=== PATIENT | female | born 1965 | race Caucasian/White ===

== ENCOUNTER 2017-05-20 14:33 | Emergency (ER) | payer OTHER ==
[~2017-05-20] VITALS: Wt 61.5 kg
[~2017-05-20 14:33] MED LIST: DIAZ-90 PO; HYDR-3498 PO; IBUP800T25 PO; TRAZ50TA18 PO
[2017-05-20] MEDS ORDERED: ONDANSETRON (ODT) 4 MG TAB ODT STA (15:03)
[2017-05-20 15:13] LABS: URINE BLOOD (Dip) POC Negative (NEGATIVE)
[2017-05-20] MEDS ORDERED: HYDROCODONE/APAP (5/325) TAB PO ONE (15:30)
[2017-05-20] MEDS ORDERED: MECLIZINE 12.5 MG TAB PO ONE (15:30)
[2017-05-20 15:39] LABS: ADD UMIC YES; UR ASCORBIC ACID NEGATIVE (NEGATIVE); UR BACTERIA FEW /HPF (NONE SEEN); UR BILIRUBIN (Dip) NEGATIVE (NEGATIVE); UR BLOOD (Dip) NEGATIVE (NEGATIVE); UR CLARITY CLEAR (CLEAR); UR COLOR STRAW (YELLOW); UR GLUCOSE (Dip) NEGATIVE (NEGATIVE); UR KETONES (Dip) NEGATIVE (NEGATIVE); UR LEUKOCYTE ESTERASE (Dip) 2+ Leu/ul (NEGATIVE); UR NITRITE (Dip) NEGATIVE (NEGATIVE); UR RBC 1 /HPF (0-5); UR SPECIFIC GRAVITY (Dip) 1.003 (1.003-1.030); UR SQUAMOUS EPITHELIAL CELL FEW /HPF (FEW); UR TOTAL PROTEIN (Dip) NEGATIVE (NEGATIVE); UR UROBILINOGEN (Dip) NEGATIVE (NEGATIVE)
[2017-05-20 15:44] LABS: BASOPHILS % 0.4 % (0.0-2.0); EOSINOPHILS # 0.1 10^3/ul (0.0-0.5); EOSINOPHILS % 1.3 % (0.0-7.0); HEMOGLOBIN 9.6 g/dl (12.0-16.0); LYMPHOCYTES # 2.1 10^3/ul (0.8-2.9); LYMPHOCYTES % 46.8 % (15.0-51.0); MEAN CORPUSCULAR HEMOGLOBIN 23.8 pg (29.0-33.0); MEAN CORPUSCULAR VOLUME 76.7 fl (82.0-101.0); MEAN PLATELET VOLUME 9.4 fl (7.4-10.4); MONOCYTE # 0.4 10^3/ul (0.3-0.9); MONOCYTES % 9.2 % (0.0-11.0); NEUTROPHIL # 1.9 10^3/ul (1.6-7.5); NEUTROPHILS % 42.3 % (39.0-77.0); PLATELET COUNT 356 10^3/UL (140-415); RED BLOOD COUNT 4.04 10^6/ul (4.20-5.40); RED CELL DISTRIBUTION WIDTH 15.6 % (11.5-14.5); WHITE BLOOD COUNT 4.6 10^3/ul (4.8-10.8)
[2017-05-20 15:48] LABS: ADD SCAN DIFF NO
[2017-05-20 16:03] LABS: CALCIUM 10.2 mg/dl (8.4-10.2); CREATININE 0.46 mg/dl (0.44-1.00); POTASSIUM 4.3 mmol/L (3.5-5.1)
--- NOTE | 2017-05-20 16:04 | RADRPT ---
PROCEDURE: CT Brain without. CLINICAL INDICATION: Headache. TECHNIQUE: A CT of the brain was performed on multidetector high-resolution CT scanner utilizing a xial sections from the skull base through the vertex without contrast. The scan was reviewed in sof t tissue brain and high frequency resolution bone algorithm windows. Images were reviewed on a high -resolution PACS workstation. One or more the following does reduction techniques were utilized: Aut omated exposure control, adjustment of the mA/ or kV according to patient's size, or use of iterativ e reconstruction technique. The exam CTDI = 44.33 mGy and the DLP = 720.23 mGy-cm. COMPARISON: Brain CT 02/27/2016. Brain MRI 10/08/2014. FINDINGS: The ventricles and sulci are minimally prominent indicative of volume loss. There is no intracranial hemorrhage, mass effect or midline shift. No abnormal intra-axial or extra-axial fluid collections are seen. The crowe/white matter differentiation is preserved. There are minimal scattered foci of hypoattenuation in the white matter, which are nonspecific in et iology but likely reflect chronic small vessel ischemic changes. There are mild intracranial vascul ar calcifications consistent with atherosclerosis. The visualized paranasal sinuses are essentially clear. IMPRESSION: 1. No acute intracranial hemorrhage, transcortical infarction or mass effect. Considering previous history of sellar mass if clinical concern persists consider brain MRI with pituitary protocol. 2. Minimal chronic small vessel ischemic changes. 3. Minimal generalized cerebral volume loss. RPTAT: QQ .Shira Lopez MD, Date Time Electronically viewed and signed by .Shira Lopez MD, MD on 05/20/2017 16:04 .N/
[2017-05-20] MEDS ORDERED: NAPR-260 PO (16:16)
[2017-05-20] MEDS ORDERED: CEPH-443 PO (16:16)
[2017-05-20] MEDS ORDERED: MECL12.574 PO (16:17)
[2017-05-20 16:32] VITALS: BP 106/67; PULSE 74; RESP 17; TEMP 98.6
--- NOTE | 2017-05-20 19:05 | ERD ---
ER Documentation Chief Complaint Date/Time DATE: 05/20/17 TIME: 18:59 Chief Complaint DIZZINESS, HEADACHE, ONSET 2 WEEKS HPI This patient is a 51-year-old female presenting to the emergency department with complaints of dizziness, and headache ongoing intermittently for the past 2 weeks. Additionally the patient reports full body pain. The patient felt the room spinning this morning and she fell to the floor on the carpet but did not injure her head or lose consciousness. She does have past medical history of chronic headaches for 5 years as well as a pituitary tumor which was removed. She states this headache is different than she has ever had and it is the highest in severity then she has ever had. She denies aggravating or alleviating factors. She does additionally complain of some dysuria. No fevers , chills, syncope, chest pain, shortness of breath, or other symptoms reported currently. ROS All systems reviewed and are negative except as per history of present illness. Medications Home Meds Active Scripts Meclizine Hcl* (Antivert*) 12.5 Mg Tab, 12.5 MG PO Q6H Y for DIZZINESS, #20 TAB Prov:ABRAHAM RAM PA-C 05/20/17 Naproxen* (Naprosyn*) 500 Mg Tablet, 500 MG PO BID Y for PAIN AND/OR INFLAMMATION, #30 TAB Prov:ABRAHAM RAM PA-C 05/20/17 Cephalexin* (Keflex*) 500 Mg Capsule, 500 MG PO TID for 7 Days, #21 CAP Prov:ABRAHAM RAM PA-C 05/20/17 Diazepam* (Valium*) 5 Mg Tablet, 5 MG PO Q8 Y for MUSCLE SPASMS, #10 TAB Prov:SANIDE RAYMOND PA-C 07/31/16 Ibuprofen* (Motrin*) 800 Mg Tab, 800 MG PO Q6H Y for PAIN AND OR ELEVATED TEMP, #30 TAB Prov:SANDIE RAYMOND PA-C 07/31/16 Hydrocodone Bit-Acetaminophen* (Mendon*) 5-325 Mg Tab, 1 TAB PO Q6 Y for PAIN, # 10 TAB Prov:OUMAR FLETCHER MD 02/28/16 Reported Medications Trazodone Hcl* (Desyrel*) 50 Mg Tab, 50 MG PO QHS, TAB 02/27/16 Allergies Allergies: Coded Allergies: No Known Drug Allergies (Verified Allergy, Unknown, 10/25/14) PMhx/Soc History of Surgery: No Anesthesia Reaction: No Hx Neurological Disorder: No Hx Respiratory Disorders: No Hx Cardiac Disorders: No Hx Psychiatric Problems: No Hx Miscellaneous Medical Probl: No Hx Alcohol Use: No Hx Substance Use: No Hx Tobacco Use: No Smoking Status: Never smoker Physical Exam Vitals Vital Signs Date Time Temp Pulse Resp B/P Pulse Ox O2 Delivery O2 Flow Rate FiO2 05/20/17 16:32 98.6 74 17 106/67 98 Room Air 05/20/17 15:22 98.6 80 18 106/83 96 Room Air 86 110/75 91 117/83 05/20/17 14:35 99.2 88 17 124/71 99 Physical Exam Const: Nontoxic, well-appearing female who appears to be in acute pain. Head: Atraumatic Eyes: Normal Conjunctiva ENT: Normal External Ears, Nose and Mouth. Neck: Full range of motion..~ No meningismus. Resp: Clear to auscultation bilaterally Cardio: Regular rate and rhythm, no murmurs Abd: Soft, non tender, non distended. Normal bowel sounds Skin: No petechiae or rashes Back: No midline or flank tenderness Ext: No cyanosis, or edema Neur: Awake and alert. Cranial nerves intact. Negative Romberg's test. Negative pronator drift. Psych: Normal Mood and Affect Result Diagram: 05/20/17 1533 05/20/17 1533 Results 24 hrs Laboratory Tests Test 05/20/17 15:13 05/20/17 15:18 05/20/17 15:33 Urine Color STRAW Urine Clarity CLEAR Urine pH 9.0 Urine Specific [place] 1.003 Urine Ketones NEGATIVEmg/dL Urine Nitrite NEGATIVEmg/dL Urine Bilirubin NEGATIVEmg/dL Urine Urobilinogen NEGATIVEmg/dL Urine Leukocyte Esterase 2+Anjel/ul Urine Microscopic RBC 1/HPF Urine Microscopic WBC 12/HPF Urine Squamous Epithelial Cells FEW/HPF Urine Bacteria FEW/HPF Urine Hemoglobin NEGATIVEmg/dL Urine Glucose NEGATIVEmg/dL Urine Total Protein NEGATIVEmg/dl Bedside Urine pH (LAB) 7.5 Bedside Urine Protein (LAB) Negative Bedside Urine Glucose (UA) Negative Bedside Urine Ketones (LAB) Negative Bedside Urine Blood Negative Bedside Urine Nitrite (LAB) Negative Bedside Urine Leukocyte Esterase (L 1+ White Blood Count 4.610^3/ul Red Blood Count 4.0410^6/ul Hemoglobin 9.6g/dl Hematocrit 31.0% Mean Corpuscular Volume 76.7fl Mean Corpuscular Hemoglobin 23.8pg Mean Corpuscular Hemoglobin Concent 31.0g/dl Red Cell Distribution Width 15.6% Platelet Count 33057^3/UL Mean Platelet Volume 9.4fl Neutrophils % 42.3% Lymphocytes % 46.8% Monocytes % 9.2% Eosinophils % 1.3% Basophils % 0.4% Nucleated Red Blood Cells % 0.0/100WBC Neutrophils # 1.910^3/ul Lymphocytes # 2.110^3/ul Monocytes # 0.410^3/ul Eosinophils # 0.110^3/ul Basophils # 0.010^3/ul Nucleated Red Blood Cells # 0.010^3/ul Sodium Level 143mmol/L Potassium Level 4.3mmol/L Chloride Level 101mmol/L Carbon Dioxide Level 24mmol/L Anion Gap 22 Blood Urea Nitrogen 5mg/dl Creatinine 0.46mg/dl Glucose Level 87mg/dl Calcium Level 10.2mg/dl Current Medications Medications (Trade) Dose Ordered Sig/Luther Route PRN Reason Start Time Stop Time Status Last Admin Dose Admin Acetaminophen/ Hydrocodone Bitart ([place] (5/325)) 1 tab ONCE ONCE PO 05/20/17 15:30 05/20/17 15:31 DC 05/20/17 15:15 Ondansetron HCl (Zofran Odt) 4 mg ONCE STAT ODT 05/20/17 15:03 05/20/17 15:06 DC 05/20/17 15:15 Meclizine HCl (Antivert) 12.5 mg ONCE ONCE PO 05/20/17 15:30 05/20/17 15:31 DC 05/20/17 15:15 [place] [id number] Radiology Main Line: [phone] DIAGNOSTIC IMAGING REPORT Patient: TOBY DESAI : 1965 Age: 51 Sex: F MR #: [id number] DOS: 05/20/17 0000 Ordering MD: ABRAHAM RAM PA-C Location: [facility] Room/Bed: PROCEDURE: CT Brain without. CLINICAL INDICATION: Headache. TECHNIQUE: A CT of the brain was performed on multidetector high-resolution CT scanner utilizing axial sections from the skull base through the vertex without contrast. The scan was reviewed in soft tissue brain and high frequency resolution bone algorithm windows. Images were reviewed on a high- resolution PACS workstation. One or more the following does reduction techniques were utilized: Automated exposure control, adjustment of the mA/ or kV according to patient's size, or use of iterative reconstruction technique. The exam CTDI = 44.33 mGy and the DLP = 720.23 mGy-cm. COMPARISON: Brain CT 02/27/2016. Brain MRI 10/08/2014. FINDINGS: The ventricles and sulci are minimally prominent indicative of volume loss. There is no intracranial hemorrhage, mass effect or midline shift. No abnormal intra-axial or extra-axial fluid collections are seen. The crowe/white matter differentiation is preserved. There are minimal scattered foci of hypoattenuation in the white matter, which are nonspecific in etiology but likely reflect chronic small vessel ischemic changes. There are mild intracranial vascular calcifications consistent with atherosclerosis. The visualized paranasal sinuses are essentially clear. IMPRESSION: 1. No acute intracranial hemorrhage, transcortical infarction or mass effect. Considering previous history of sellar mass if clinical concern persists consider brain MRI with pituitary protocol. 2. Minimal chronic small vessel ischemic changes. 3. Minimal generalized cerebral volume loss. RPTAT: QQ .Shira Lopez MD, MD Date Time Electronically viewed and signed by .Shira Lopez MD, MD on 05/20/2017 16: 04 .N/ CC: ABRAHAM RAM PA-C Procedures/[facility] EMERGENCY DEPARTMENT COURSE / MEDICAL DECISION MAKING: This is a 51-year-old female who comes to the emergency room secondary to complaints of dizziness, headache, body pain, and dysuria. The patient was given p.o. meclizine, p.o. Zofran, p.o. Mendon in the department. On re-evaluation, the patient was feeling improved. Lab results reviewed. CBC: No leukocytosis or left shift. Anemia was noted and the patient was advised to supplement with iron. Chemistry: No significant acute abnormalities. UA: Concerning for urinary tract infection. Radiology: CT scan of the brain without contrast was obtained because the patient was complaining of the worst headache of her life. It was negative for acute findings and interpreted by the radiologist. The primary diagnosis is urinary tract infection. Secondary diagnosis is dizziness with unknown etiology. Other diagnoses include headache and anemia. I have low suspicion for intracranial hemorrhage, TIA, CVA, acute coronary syndrome, septicemia, or other emergent conditions at this time. Discharge: I have discussed the lab results and diagnostic findings with the patient and answered any questions or concerns. The patient was discharged with a prescription for meclizine, naproxen, and cephalexin. The patient was advised to followup with their PMD in 1-2 days and to return to the Emergency Department if there are any new or worsening symptoms. The patient understood and agreed with the diagnosis, treatment and plan. The patient is stable for discharge at this time. Departure Diagnosis: Primary Impression: Urinary tract infection Additional Impressions: Dizziness Headache Headache type: unspecified Headache chronicity pattern: acute headache Intractability: not intractable Qualified Code: R51 - Acute nonintractable headache, unspecified headache type Anemia Condition: Fair Patient Instructions: Understanding Urinary Tract Infections (UTIs), Self-Care for Headaches, Dizziness (Vertigo) and Balance Problems: Ensuring Your Safety, Dizziness, Unk Cause Additional Instructions: No mas mejor en 2-3 potter, regresar. Mas peor en 24 horas, regresear rapidamente. Ir a doctor primario in 5-7 potter. Usar instrucciones cuando lauren medicamento. ABRAHAM RAM PA-C May 20, 2017 19:05
== END 2017-05-20 16:33 | disposition home or self-care (01) ==
LOC: FTE 14:33
DX: N39.0 Urinary tract infection, site not specified (principal); R51 Headache; D64.9 Anemia, unspecified
CPT/HCPCS: 70450; 80048; 81001; 85025; 87086; Z7610; 36415; 81003

== ENCOUNTER 2017-07-25 14:33 | Emergency (ER) | payer OTHER ==
[~2017-07-25] VITALS: Ht 162.6 cm; Wt 61.5 kg
[~2017-07-25 14:33] MED LIST changes: +CEPH-443 PO; +MECL12.574 PO; +NAPR-260 PO
[2017-07-25 14:38] VITALS: Ht 162.6 cm; Wt 61.5 kg
[2017-07-25] MEDS ORDERED: TRAM-40 PO (15:38)
[2017-07-25] MEDS ORDERED: KETOROLAC 15 MG INJ IV STA (15:43)
[2017-07-25] MEDS ORDERED: SOD CHLORIDE 0.9% 1,000 ML IV STA (15:43)
[2017-07-25] MEDS ORDERED: ACET-820 PO (15:43)
[2017-07-25] MEDS ORDERED: ONDANSETRON 4 MG INJ IV STA (15:43)
--- NOTE | 2017-07-25 16:12 | RADRPT ---
PROCEDURE: XR Chest. CLINICAL INDICATION: Abdominal pain. TECHNIQUE: Single frontal view of the chest was obtained. COMPARISON: None FINDINGS: Monitoring electrodes project across the chest. The soft tissues are otherwise normal. There are s mall degenerative osteophytes in the thoracic spine. The heart, cardiomediastinal silhouette and hi lar structures are normal. The pulmonary vasculature is normal. There is a left-sided aorta. The tiffanie ngs are clear. The costophrenic angles are normal. IMPRESSION: 1. No evidence of active cardiopulmonary disease. 2. No evidence of pneumoperitoneum. 3. Spondylosis of the thoracic spine. RPTAT:AAJJ Physician Yoli Date Time Electronically viewed and signed by Physician Yoli on 07/25/2017 16:12 /
[2017-07-25 16:21] LABS: BASOPHILS % 0.4 % (0.0-2.0); EOSINOPHILS # 0.1 10^3/ul (0.0-0.5); HEMOGLOBIN 9.7 g/dl (12.0-16.0); LYMPHOCYTES # 1.6 10^3/ul (0.8-2.9); LYMPHOCYTES % 31.1 % (15.0-51.0); MEAN CORPUSCULAR HEMOGLOBIN 23.5 pg (29.0-33.0); MEAN CORPUSCULAR HGB CONC 31.3 g/dl (32.0-37.0); MEAN CORPUSCULAR VOLUME 75.1 fl (82.0-101.0); MEAN PLATELET VOLUME 10.6 fl (7.4-10.4); MONOCYTE # 0.5 10^3/ul (0.3-0.9); MONOCYTES % 9.2 % (0.0-11.0); NEUTROPHILS % 58.1 % (39.0-77.0); PLATELET COUNT 341 10^3/UL (140-415); RED BLOOD COUNT 4.13 10^6/ul (4.20-5.40); RED CELL DISTRIBUTION WIDTH 17.9 % (11.5-14.5)
[2017-07-25 16:30] LABS: ADD UMIC YES; UR ASCORBIC ACID NEGATIVE (NEGATIVE); UR BACTERIA FEW /HPF (NONE SEEN); UR BILIRUBIN (Dip) NEGATIVE (NEGATIVE); UR BLOOD (Dip) NEGATIVE (NEGATIVE); UR CLARITY CLOUDY (CLEAR); UR COLOR YELLOW (YELLOW); UR GLUCOSE (Dip) NEGATIVE (NEGATIVE); UR KETONES (Dip) NEGATIVE (NEGATIVE); UR LEUKOCYTE ESTERASE (Dip) NEGATIVE Leu/ul (NEGATIVE); UR NITRITE (Dip) NEGATIVE (NEGATIVE); UR RBC 2 /HPF (0-5); UR SPECIFIC GRAVITY (Dip) 1.014 (1.003-1.030); UR SQUAMOUS EPITHELIAL CELL FEW /HPF (FEW); UR TOTAL PROTEIN (Dip) 3+ mg/dl (NEGATIVE); UR UROBILINOGEN (Dip) NEGATIVE (NEGATIVE)
[2017-07-25 16:31] VITALS: BP 106/76; PULSE 73; RESP 22; TEMP 98.4
--- NOTE | 2017-07-25 16:34 | ERD ---
ER Documentation Chief Complaint Date/Time DATE: 07/25/17 TIME: 16:32 Chief Complaint NAUSEA WITH CP/BACK PAIN/RT ARM PAIN/SOB/ X 1 WEEK. PITUITARY TUMOR. HPI 52-year-old woman with multiple complaints including chest pain, back pain, headache, neck pain, shortness of breath, full body aches, nausea but no vomiting or diarrhea. She admits to having a history of depression denies suicidal homicidal ideation, her and her who is at the bedside both admit that these symptoms occur on a very regular basis and she uses oral opioid analgesics at home with some relief. No dysuria, no vaginal discharge. ROS All systems reviewed and are negative except as per history of present illness. Medications Home Meds Active Scripts Acetaminophen with Codeine (Acetaminophen-Cod #3 Tablet) 1 Each Tablet, 1 TAB PO Q6H Y for PAIN, #15 TAB Prov:BRENNON NOLAN MD 07/25/17 Reported Medications Acetaminophen with Codeine (Tylenol with Codeine #4 Tablet) 1 Each Tablet, 1 EACH PO DAILY Y for HEADACHE, TAB 07/25/17 Tramadol Hcl* (Ultram*) 50 Mg Tablet, 50 MG PO BID Y for PAIN, TAB 07/25/17 Trazodone Hcl* (Desyrel*) 50 Mg Tab, 50 MG PO QHS, TAB 02/27/16 Discontinued Scripts Meclizine Hcl* (Antivert*) 12.5 Mg Tab, 12.5 MG PO Q6H Y for DIZZINESS, #20 TAB Prov:ABRAHAM RAM PA-C 05/20/17 Naproxen* (Naprosyn*) 500 Mg Tablet, 500 MG PO BID Y for PAIN AND/OR INFLAMMATION, #30 TAB Prov:ABRAHAM RAM PA-C 05/20/17 Cephalexin* (Keflex*) 500 Mg Capsule, 500 MG PO TID for 7 Days, #21 CAP Prov:ABRAHAM RAM PA-C 05/20/17 Diazepam* (Valium*) 5 Mg Tablet, 5 MG PO Q8 Y for MUSCLE SPASMS, #10 TAB Prov:SANDIE RAYMOND PA-C 07/31/16 Ibuprofen* (Motrin*) 800 Mg Tab, 800 MG PO Q6H Y for PAIN AND OR ELEVATED TEMP, #30 TAB Prov:SANDIE RAYMOND PA-C 07/31/16 Hydrocodone Bit-Acetaminophen* ([place]*) 5-325 Mg Tab, 1 TAB PO Q6 Y for PAIN, # 10 TAB Prov:OUMAR FLETCHER MD 02/28/16 Allergies Allergies: Coded Allergies: No Known Drug Allergies (Verified Allergy, Unknown, 07/25/17) PMhx/Soc Anxiety, previous pituitary tumor surgery, recurrent headaches History of Surgery: Yes (BRAIN) Anesthesia Reaction: No Hx Neurological Disorder: No Hx Respiratory Disorders: No Hx Cardiac Disorders: No Hx Psychiatric Problems: No Hx Miscellaneous Medical Probl: Yes (PITUITARY TUMOR) Hx Alcohol Use: No Hx Substance Use: No Hx Tobacco Use: No Smoking Status: Never smoker FmHx Family History: No diabetes Physical Exam Vitals Vital Signs Date Time Temp Pulse Resp B/P Pulse Ox O2 Delivery O2 Flow Rate FiO2 07/25/17 16:31 98.4 73 22 106/76 100 Room Air 07/25/17 14:38 98.4 89 22 111/65 100 Physical Exam GENERAL: Well-developed, well-nourished, anxious HEENT: Moist mucous membranes, pink conjunctiva, no cervical spine tenderness or step-off deformities, no goiter, no jaundice or icterus, extraocular movements intact without pain. No submandibular induration, and no pharyngeal erythema NEURO: Alert and oriented 3, cranial nerves II through XII intact bilaterally, pupils equal round reactive to light, no focal deficits or facial asymmetry, sensation intact distally Strength 5/5 in upper and lower extremities bilaterally CARDIAC: Regular rate and rhythm, no murmurs rubs or gallops LUNGS: Clear bilaterally no wheezing crackles or stridor ABDOMEN: Soft nontender, no guarding, no rigidity, no rebound, no psoas sign no obturator sign. Normoactive bowel sounds SKIN: Warm and dry to touch, no abrasions, contusions, or hematomas, no lacerations, no ecchymosis, no target lesions, and without ulcers EXTREMITIES: No clubbing cyanosis or edema, calves are bilaterally symmetrical, no Homans sign, no popliteal cord sign. Distal pulses equal and bilateral PSYCH: Anxious Result Diagram: 07/25/17 1545 07/25/17 1545 Results 24 hrs Laboratory Tests Test 07/25/17 15:45 White Blood Count 5.010^3/ul Red Blood Count 4.1310^6/ul Hemoglobin 9.7g/dl Hematocrit 31.0% Mean Corpuscular Volume 75.1fl Mean Corpuscular Hemoglobin 23.5pg Mean Corpuscular Hemoglobin Concent 31.3g/dl Red Cell Distribution Width 17.9% Platelet Count 83926^3/UL Mean Platelet Volume 10.6fl Neutrophils % 58.1% Lymphocytes % 31.1% Monocytes % 9.2% Eosinophils % 1.0% Basophils % 0.4% Nucleated Red Blood Cells % 0.0/100WBC Neutrophils # (Manual) 2.910^3/ul Lymphocytes # 1.610^3/ul Monocytes # 0.510^3/ul Eosinophils # 0.110^3/ul Basophils # 0.010^3/ul Nucleated Red Blood Cells # 0.010^3/ul Urine Color YELLOW Urine Clarity CLOUDY Urine pH 6.0 Urine Specific [place] 1.014 Urine Ketones NEGATIVEmg/dL Urine Nitrite NEGATIVEmg/dL Urine Bilirubin NEGATIVEmg/dL Urine Urobilinogen NEGATIVEmg/dL Urine Leukocyte Esterase NEGATIVELeu/ul Urine Microscopic RBC 2/HPF Urine Microscopic WBC 2/HPF Urine Squamous Epithelial Cells FEW/HPF Urine Bacteria FEW/HPF Urine Hemoglobin NEGATIVEmg/dL Urine Glucose NEGATIVEmg/dL Urine Total Protein 3+mg/dl Sodium Level 142mmol/L Potassium Level 3.6mmol/L Chloride Level 106mmol/L Carbon Dioxide Level 24mmol/L Anion Gap 16 Blood Urea Nitrogen 4mg/dl Creatinine 0.50mg/dl Glucose Level 91mg/dl Calcium Level 9.3mg/dl Total Bilirubin 0.2mg/dl Direct Bilirubin 0.00mg/dl Indirect Bilirubin 0.2mg/dl Aspartate Amino Transf (AST/SGOT) 19IU/L Alanine Aminotransferase (ALT/SGPT) 23IU/L Alkaline Phosphatase 55IU/L Troponin I < 0.012ng/ml Total Protein 7.3g/dl Albumin 4.2g/dl Globulin 3.10g/dl Albumin/Globulin Ratio 1.35 Lipase 112U/L Current Medications Medications (Trade) Dose Ordered Sig/Luther Route PRN Reason Start Time Stop Time Status Last Admin Dose Admin Sodium Chloride (NS) 1,000 ml @ 1,000 mls/hr Q1H STAT IV 9/4/17 15:43 07/25/17 16:42 DC 07/25/17 16:02 Ondansetron HCl (Zofran Inj) 4 mg ONCE STAT IV 07/25/17 15:43 07/25/17 15:46 DC 07/25/17 16:01 Ketorolac Tromethamine (Toradol) 15 mg ONCE STAT IV 07/25/17 15:43 07/25/17 15:46 DC 07/25/17 16:02 Procedures/MDM IV line was established patient was placed on school bus monitor rhythm strip revealed a sinus rhythm at about 80 bpm with upright P and T waves. Patient was afebrile. EKG performed, read by me revealed a normal sinus rhythm 83 bpm, left axis deviation, narrow QRS complex, no concerning ST elevations or depressions noted. Administered 1 L normal saline intravenously, Toradol 15 mg IV and Zofran 4 mg IV. CBC and electrolytes were normal, liver function tests normal, troponin negative Urinalysis was negative for infection. Differential diagnoses considered, included but not limited to acute coronary syndrome, pulmonary embolism, aortic dissection, abdominal aortic aneurysm, sepsis, stroke, meningitis, encephalitis, pneumonia, appendicitis, cholecystitis , bowel obstruction, pyelonephritis, nephrolithiasis, cystitis, as well as metabolic, hematologic, and electrolyte abnormalities. As well as abscess, cellulitis, fractures, and dislocations. Patient feels much better at this time, and vital signs are normal, symptoms have improved. I did give strict instructions to return to the ED if symptoms continue or worsen, patient will otherwise follow-up with primary care physician. Patient understood instructions and agreed to plan. Disclaimer: Inadvertent spelling and grammatical errors are likely due to EHR/ dictation software use and do not reflect on the overall quality of patient care. Also, please note that the electronic time recorded on this note does not necessarily reflect the actual time of the patient encounter. Departure Diagnosis: Primary Impression: Chest pain Chest pain type: unspecified Qualified Code: R07.9 - Chest pain, unspecified type Additional Impression: Depression Depression Type: major depressive disorder Major depression recurrence: single episode Active/Remission status: currently active Major depression episode severity: moderate Qualified Code: F32.1 - Moderate single current episode of major depressive disorder Condition: BRENNON King MD Jul 25, 2017 16:34
[2017-07-25 16:42] LABS: ALANINE AMINOTRANSFERASE 23 IU/L (13-69); ALBUMIN 4.2 g/dl (3.3-4.9); ALBUMIN/GLOBULIN RATIO 1.35; ALKALINE PHOSPHATASE 55 IU/L (42-121); ANION GAP 16 (8-16); ASPARTATE AMINO TRANSFERASE 19 IU/L (15-46); BILIRUBIN,INDIRECT 0.2 mg/dl (0-1.1); BILIRUBIN,TOTAL 0.2 mg/dl (0.2-1.3); BLOOD UREA NITROGEN 4 mg/dl (7-20); CALCIUM 9.3 mg/dl (8.4-10.2); CARBON DIOXIDE 24 mmol/L (21-31); CHLORIDE 106 mmol/L (97-110); GLUCOSE 91 mg/dl (70-220); POTASSIUM 3.6 mmol/L (3.5-5.1); SODIUM 142 mmol/L (135-144); TOTAL PROTEIN 7.3 g/dl (6.1-8.1)
[2017-07-25 16:55] LABS: TROPONIN-I < 0.012 ng/ml (0.00-0.12)
[2017-07-25] MEDS ORDERED: ACET1TAB40 PO (17:01)
== END 2017-07-25 17:17 | disposition home or self-care (01) ==
LOC: E/R 14:33
DX: R07.9 Chest pain, unspecified (principal); F32.1 Major depressive disorder, single episode, moderate; R40.2142 Coma scale, eyes open, spontaneous, at arrival to emergency department; R40.2252 Coma scale, best verbal response, oriented, at arrival to emergency department; R40.2362 Coma scale, best motor response, obeys commands, at arrival to emergency department
CPT/HCPCS: 36415; 71010; 80053; 81001; 83690; 84484; 85025; 93005; 96361; 96374; 96375; J1885; J2405; J7030; Z7502; Z7610